=== PATIENT | female | born 1970 | race Two or more races ===

== ENCOUNTER 2019-04-11 21:08 | Emergency (ER) | payer SELFPAY ==
[~2019-04-11] VITALS: Ht 160 cm; Wt 68.0 kg
[~2019-04-11 21:08] MED LIST: ACET-285 PO; LORA-352 PO
[2019-04-11 22:35] LABS: Urine Bacteria FEW /hpf (None Seen); Urine Blood 1+ /uL (Negative); Urine Mucus FEW (None Seen); Urine Specific Gravity 1.018 (1.001-1.035); Urine WBC 5 /hpf (0 - 5)
[2019-04-11 23:06] LABS: Basophils # (auto) 0 uL; Basophils % (auto) 0.6 % (0.0-2.0); Eosinophils # (auto) 0.1 uL; Eosinophils % (auto) 0.9 % (0.0-7.0); Hemoglobin 15.1 g/dL (12.2-16.2); Lymphocytes # (auto) 1.9 uL; Lymphocytes % (auto) 23.8 % (10.0-50.0); Mean Corpuscular Hemoglobin 31.8 pg (28.0-32.0); Mean Corpuscular Hgb Conc. 34.2 g/dL (32.0-36.0); Mean Corpuscular Volume 92.9 fL (80.0-100.0); Monocytes # (auto) 0.5 uL; Monocytes % (auto) 6.5 % (0.0-12.0); Neutrophils # (auto) 5.5 uL; Neutrophils % (auto) 68.2 % (37.0-80.0); Nucleated Red Blood Cells % 0.1 %; Platelet Count (auto) 440 10^3/uL (140-450); Red Blood Cells 4.74 10^6/uL (4.0-5.20); Red Cell Distribution Width 13.4 % (11.8-14.3); White Blood Cell 8.1 10^3/uL (4.4-10.8)
[2019-04-11 23:21] LABS: Calcium 9.4 mg/dL (8.5-10.1); Potassium 3.6 mmol/L (3.5-5.1)
[2019-04-11 23:24] LABS: BUN/Creatinine Ratio 12.2; Bilirubin, Total 0.4 mg/dL (0.2-1.0); Total Protein 9.1 g/dL (6.4-8.2)
[2019-04-12] MEDS ORDERED: ONDANSETRON HCL 4 MG/2 ML VIAL IV ONE (01:15)
[2019-04-12] MEDS ORDERED: MORPHINE SULF INJ 2 MG/ML SYRINGE 1ML IV ONE (01:15)
[2019-04-12 01:25] VITALS: BP 128/70
== END 2019-04-12 01:40 | disposition home or self-care (01) ==
LOC: ER 21:10
DX: N83.202 Unspecified ovarian cyst, left side (principal); Z90.89 Acquired absence of other organs
CPT/HCPCS: 36415; 74176; 80053; 81001; 82150; 83690; 85025

== ENCOUNTER 2019-08-13 13:41 | Emergency (ER) | payer MEDICAID ==
[~2019-08-13] VITALS: Ht 165.1 cm; Wt 70.3 kg
[2019-08-13] MEDS ORDERED: SODIUM CHLORIDE 0.9% 1,000 ML IV ONE ×2 (14:01)
[2019-08-13] MEDS ORDERED: ONDANSETRON HCL 4 MG/2 ML VIAL IV ONE (14:15)
[2019-08-13] MEDS ORDERED: HYDROmorphone HCL 2 MG/ML VL IV ONE (14:15)
[2019-08-13 15:26] LABS: Basophils # (auto) 0 10 ^3/uL (0-0.2); Basophils % (auto) 0.3 % (0.0-2.0); Eosinophils # (auto) 0 10 ^3/uL (0-0.8); Eosinophils % (auto) 0.5 % (0.0-7.0); Hematocrit 40.9 % (36.0-46.0); Hemoglobin 13.6 g/dL (12.2-16.2); Lymphocytes # (auto) 0.9 10 ^3/uL (0.4-5.4); Lymphocytes % (auto) 9.8 % (10.0-50.0); Mean Corpuscular Hemoglobin 31.6 pg (28.0-32.0); Mean Corpuscular Hgb Conc. 33.2 g/dL (32.0-36.0); Mean Corpuscular Volume 95.1 fL (80.0-100.0); Monocytes # (auto) 0.5 10 ^3/uL (0-1.3); Monocytes % (auto) 5.7 % (0.0-12.0); Neutrophils # (auto) 7.3 10 ^3/uL (1.6-8.6); Neutrophils % (auto) 83.7 % (37.0-80.0); Platelet Count (auto) 310 10^3/uL (140-450); Red Blood Cells 4.29 10^6/uL (4.0-5.20); Red Cell Distribution Width 13.4 % (11.8-14.3); White Blood Cell 8.7 10^3/uL (4.4-10.8)
[2019-08-13 15:43] LABS: Albumin 3.7 g/dL (3.4-5.0); Anion Gap 8 (5-15); Blood Urea Nitrogen 4 mg/dL (7-18); Calcium 8.6 mg/dL (8.5-10.1); Carbon Dioxide 22 mmol/L (21-32); Chloride 101 mmol/L (98-107); Glucose 107 mg/dL (74-106); Potassium 3.9 mmol/L (3.5-5.1); Sodium 131 mmol/L (136-145)
[2019-08-13 15:44] LABS: Alanine Aminotransferase 12 U/L (13-56); Aspartate Aminotransferase 14 U/L (15-37); BUN/Creatinine Ratio 6.7; GFR African American 138 mL/min; GFR Non-African American 114 mL/min
[2019-08-13 15:47] LABS: Alkaline Phosphatase 81 U/L (45-117); Bilirubin, Total 0.4 mg/dL (0.2-1.0)
[2019-08-13 16:04] VITALS: BP 164/111
[2019-08-13 17:38] LABS: Urine Bacteria MANY /hpf (None Seen); Urine Blood Negative /uL (Negative); Urine Mucus FEW (None Seen); Urine WBC 3 /hpf (0 - 5)
== END 2019-08-13 17:42 | disposition home or self-care (01) ==
LOC: ER 13:41
DX: N83.9 Noninflammatory disorder of ovary, fallopian tube and broad ligament, unspecified (principal); Z98.51 Tubal ligation status
CPT/HCPCS: 36415; 76856; 80053; 81001; 85025; 96374; 96375; 99284; J1170; J2405; J7030